=== PATIENT | male | born 1955 | race Caucasian/White ===

== ENCOUNTER 2018-06-01 12:17 | Inpatient (IN) | payer OTHER, BC ==
[2018-06-01 12:59] LABS: ADD MAN DIFF? NO
[2018-06-01] MEDS: SOD CHLORIDE 0.9% 500 ML IV (12:59)
[2018-06-01] MEDS: MAGNESIUM SULFATE 1 GM/D5W 100 ML IVPB (12:59)
[2018-06-01 13:09] LABS: ABNORMAL IP MESSAGE 1; BASOPHILS % 0.2 % (0.0-2.0); EOSINOPHILS % 0.6 % (0.0-7.0); HEMATOCRIT 19.5 % (42.0-52.0); LYMPHOCYTES # 1.2 10^3/ul (0.8-2.9); LYMPHOCYTES % 24.7 % (15.0-51.0); MEAN CORPUSCULAR HEMOGLOBIN 37.6 pg (29.0-33.0); MEAN CORPUSCULAR HGB CONC 34.9 g/dl (32.0-37.0); MEAN CORPUSCULAR VOLUME 107.7 fl (82.0-101.0); MEAN PLATELET VOLUME 11.1 fl (7.4-10.4); MONOCYTE # 0.5 10^3/ul (0.3-0.9); NEUTROPHILS % 63.9 % (39.0-77.0); PLATELET COUNT 168 10^3/UL (140-415); POSITIVE DIFF @See below; RED BLOOD COUNT 1.81 10^6/ul (4.70-6.10); RED CELL DISTRIBUTION WIDTH 18.3 % (11.5-14.5)
[2018-06-01 13:09] LABS: WHITE BLOOD COUNT 4.7 10^3/ul (4.8-10.8)
[2018-06-01 13:17] LABS: HEMOGLOBIN 6.8 g/dl (14.0-18.0); PATH REVIEW? YES
[2018-06-01 13:26] LABS: ALANINE AMINOTRANSFERASE 32 IU/L (13-69); ALBUMIN 4.2 g/dl (3.3-4.9); ALBUMIN/GLOBULIN RATIO 1.61; ALKALINE PHOSPHATASE 71 IU/L (42-121); ANION GAP 23 (8-16); ASPARTATE AMINO TRANSFERASE 65 IU/L (15-46); BILIRUBIN,INDIRECT 1.4 mg/dl (0-1.1); BILIRUBIN,TOTAL 1.4 mg/dl (0.2-1.3); BLOOD UREA NITROGEN 95 mg/dl (7-20); CALCIUM 6.5 mg/dl (8.4-10.2); CARBON DIOXIDE 36 mmol/L (21-31); CHLORIDE 82 mmol/L (97-110); CREATININE 5.29 mg/dl (0.61-1.24); LIPASE 120 U/L (23-300); SODIUM 138 mmol/L (135-144); TOTAL PROTEIN 6.8 g/dl (6.1-8.1)
[2018-06-01 13:29] LABS: GLUCOSE 413 mg/dl (70-220); INR 1.09; PROTIME 14.3 Sec (11.9-14.9); PT RATIO 1.1
[2018-06-01 13:30] LABS: PARTIAL THROMBOPLASTIN TIME 26.4 Sec (25.0-35.0)
[2018-06-01 13:55] LABS: IMMEDIATE SPIN CROSSMATCH 1 2
[2018-06-01] MEDS: POTASSIUM CHLORIDE 100 ML IVPB ×2 (14:08→15:58)
[2018-06-01] MEDS ORDERED: ONDANSETRON 4 MG TAB PO (16:00)
[2018-06-01] MEDS ORDERED: NACL 0.9% 3 ML SYG IV (16:00)
[2018-06-01] MEDS ORDERED: ACETAMINOPHEN 325 MG TAB PO (16:00)
[2018-06-01] MEDS ORDERED: GLUCOSE GEL 15 GRAM TUBE BUCCAL (16:30)
[2018-06-01] MEDS ORDERED: GLUCOSE GEL 15 GRAM TUBE PO ×2 (16:30)
[2018-06-01] MEDS ORDERED: DEXTROSE 50% 50 ML SYRINGE IV ×2 (16:30)
[2018-06-01] MEDS ORDERED: GLUCAGON 1 MG INJ IM (16:30)
[2018-06-01] MEDS: SOD CHLORIDE 0.9% 1,000 ML IV (16:49)
[2018-06-01] MEDS: HYDROCODONE/APAP (5/325) TAB PO (16:49)
[2018-06-01 16:54] LABS: ADD UMIC YES; UR ASCORBIC ACID NEGATIVE (NEGATIVE); UR BILIRUBIN (Dip) NEGATIVE (NEGATIVE); UR BLOOD (Dip) 1+ mg/dL (NEGATIVE); UR CLARITY CLEAR (CLEAR); UR COLOR STRAW (YELLOW); UR GLUCOSE (Dip) 3+ mg/dL (NEGATIVE); UR KETONES (Dip) NEGATIVE (NEGATIVE); UR LEUKOCYTE ESTERASE (Dip) NEGATIVE Leu/ul (NEGATIVE); UR NITRITE (Dip) NEGATIVE (NEGATIVE); UR RBC 0 /HPF (0-5); UR SPECIFIC GRAVITY (Dip) 1.005 (1.003-1.030); UR TOTAL PROTEIN (Dip) 1+ mg/dl (NEGATIVE); UR UROBILINOGEN (Dip) NEGATIVE (NEGATIVE); UR WBC 1 /HPF (0-5)
[2018-06-01] MEDS ORDERED: INSULIN ASPART [NOVOLOG] 3 ML PEN SC ×3 (17:00→18:00)
[2018-06-01] MEDS: INSULIN ASPART [NOVOLOG] 3 ML PEN SC ×3 (18:38→21:00)
[2018-06-01] MEDS: ATORVASTATIN 80 MG TAB PO (21:24)
[2018-06-01] MEDS: NA BICARBONATE 650 MG TAB PO (21:24)
[2018-06-01] MEDS: INSULIN GLARGINE [LANTus] (100 UNITS/ML) SYG SC (21:24)
[2018-06-01] MEDS: TAMSULOSIN (SR) 0.4 MG CAP PO (21:24)
[2018-06-01] MEDS: FAMOTIDINE 20 MG TAB PO (21:24)
[2018-06-02] MEDS: ACCU-CHEK XX (02:00)
[2018-06-02 06:02] LABS: ADD MAN DIFF? NO
[2018-06-02 06:12] LABS: BASOPHILS % 0.2 % (0.0-2.0); EOSINOPHILS # 0.1 10^3/ul (0.0-0.5); HEMATOCRIT 26.8 % (42.0-52.0); HEMOGLOBIN 9.2 g/dl (14.0-18.0); LYMPHOCYTES # 1.5 10^3/ul (0.8-2.9); LYMPHOCYTES % 30.1 % (15.0-51.0); MEAN CORPUSCULAR HEMOGLOBIN 34.3 pg (29.0-33.0); MEAN CORPUSCULAR HGB CONC 34.3 g/dl (32.0-37.0); MEAN PLATELET VOLUME 10.7 fl (7.4-10.4); MONOCYTE # 0.4 10^3/ul (0.3-0.9); MONOCYTES % 7.2 % (0.0-11.0); NEUTROPHIL # 2.9 10^3/ul (1.6-7.5); NEUTROPHILS % 60.3 % (39.0-77.0); PLATELET COUNT 173 10^3/UL (140-415); RED BLOOD COUNT 2.68 10^6/ul (4.70-6.10)
[2018-06-02 06:12] LABS: WHITE BLOOD COUNT 4.9 10^3/ul (4.8-10.8)
[2018-06-02 06:37] LABS: MAGNESIUM 1.5 mg/dl (1.7-2.5)
[2018-06-02 06:37] LABS: PHOSPHORUS 5.3 mg/dl (2.5-4.9)
[2018-06-02 07:16] LABS: ANION GAP 14 (8-16); BLOOD UREA NITROGEN 91 mg/dl (7-20); CARBON DIOXIDE 39 mmol/L (21-31); CHLORIDE 92 mmol/L (97-110); CREATININE 4.34 mg/dl (0.61-1.24); GLUCOSE 111 mg/dl (70-220); SODIUM 142 mmol/L (135-144)
[2018-06-02 07:23] LABS: POTASSIUM 2.8 mmol/L (3.5-5.1)
[2018-06-02] MEDS: INSULIN ASPART [NOVOLOG] 3 ML PEN SC ×7 (07:53→20:06)
[2018-06-02] MEDS: POTASSIUM CHLORIDE (SR) 10 MEQ TAB PO (07:53)
[2018-06-02] MEDS: CALCIUM/VITAMIN D (500/200) TAB PO (08:34)
[2018-06-02] MEDS: NA BICARBONATE 650 MG TAB PO (08:34)
[2018-06-02] MEDS: LORATADINE 10 MG TAB PO (08:34)
[2018-06-02] MEDS: CHOLECALCIFEROL 2,000 UNIT CAP PO (08:34)
[2018-06-02] MEDS: MULTIVIT/CA CARB/B CMPLX/FA TAB PO (08:34)
[2018-06-02] MEDS: FERROUS SULFATE (EC) 325 MG TAB PO (08:34)
[2018-06-02] MEDS: POTASSIUM CHLORIDE (SR) 8 MEQ CAP PO (08:34)
[2018-06-02] MEDS: MAGNESIUM OXIDE 400 MG TAB PO ×2 (15:29→20:07)
[2018-06-02] MEDS: SOD CHLORIDE 0.9% 1,000 ML IV (15:29)
[2018-06-02] MEDS: POTASSIUM CHLORIDE (SR) 20 MEQ TAB PO (16:56)
[2018-06-02] MEDS: EPOETIN 4000 UNITS/1 ML INJ (ESRD) SC (16:57)
[2018-06-02] MEDS: INSULIN GLARGINE [LANTus] (100 UNITS/ML) SYG SC (20:07)
[2018-06-02] MEDS: TAMSULOSIN (SR) 0.4 MG CAP PO (20:07)
[2018-06-02] MEDS: ATORVASTATIN 80 MG TAB PO (20:07)
[2018-06-02] MEDS: FAMOTIDINE 20 MG TAB PO (20:07)
[2018-06-03] MEDS: ACCU-CHEK XX (02:05)
[2018-06-03] MEDS: SOD CHLORIDE 0.9% 1,000 ML IV (05:20)
[2018-06-03 06:15] LABS: ADD MAN DIFF? NO
[2018-06-03 06:18] LABS: WHITE BLOOD COUNT 4.7 10^3/ul (4.8-10.8)
[2018-06-03 06:18] LABS: BASOPHILS % 0.4 % (0.0-2.0); EOSINOPHILS # 0.1 10^3/ul (0.0-0.5); EOSINOPHILS % 2.1 % (0.0-7.0); HEMATOCRIT 25.8 % (42.0-52.0); HEMOGLOBIN 8.9 g/dl (14.0-18.0); LYMPHOCYTES # 1.6 10^3/ul (0.8-2.9); LYMPHOCYTES % 33.4 % (15.0-51.0); MEAN CORPUSCULAR HEMOGLOBIN 35.2 pg (29.0-33.0); MEAN CORPUSCULAR HGB CONC 34.5 g/dl (32.0-37.0); MEAN PLATELET VOLUME 10.3 fl (7.4-10.4); MONOCYTE # 0.4 10^3/ul (0.3-0.9); MONOCYTES % 8.4 % (0.0-11.0); NEUTROPHIL # 2.6 10^3/ul (1.6-7.5); NEUTROPHILS % 55.3 % (39.0-77.0); PLATELET COUNT 174 10^3/UL (140-415); RED BLOOD COUNT 2.53 10^6/ul (4.70-6.10); RED CELL DISTRIBUTION WIDTH 17.4 % (11.5-14.5)
[2018-06-03 06:33] LABS: ANION GAP 14 (8-16); BLOOD UREA NITROGEN 75 mg/dl (7-20); CALCIUM 7.5 mg/dl (8.4-10.2); CARBON DIOXIDE 34 mmol/L (21-31); CHLORIDE 96 mmol/L (97-110); CREATININE 3.56 mg/dl (0.61-1.24); GLUCOSE 149 mg/dl (70-220); POTASSIUM 3.1 mmol/L (3.5-5.1); SODIUM 141 mmol/L (135-144)
[2018-06-03] MEDS: CALCIUM/VITAMIN D (500/200) TAB PO (08:04)
[2018-06-03] MEDS: POTASSIUM CHLORIDE (SR) 8 MEQ CAP PO (08:04)
[2018-06-03] MEDS: FERROUS SULFATE (EC) 325 MG TAB PO (08:04)
[2018-06-03] MEDS: DOCUSATE SODIUM 100 MG CAP PO (08:04)
[2018-06-03] MEDS: CHOLECALCIFEROL 2,000 UNIT CAP PO (08:04)
[2018-06-03] MEDS: MULTIVIT/CA CARB/B CMPLX/FA TAB PO (08:04)
[2018-06-03] MEDS: LORATADINE 10 MG TAB PO (08:05)
[2018-06-03] MEDS: INSULIN ASPART [NOVOLOG] 3 ML PEN SC ×4 (08:06→12:26)
[2018-06-03] MEDS: POTASSIUM CHLORIDE (SR) 10 MEQ TAB PO (09:01)
[2018-06-03] MEDS: POTASSIUM CHLORIDE (SR) 20 MEQ TAB PO (09:01)
[2018-06-03 12:08] LABS: POTASSIUM 3.7 mmol/L (3.5-5.1)
== END 2018-06-03 13:30 | disposition home or self-care (01) | DRG 374 ==
LOC: E/R 12:17 → PP2 13:23
PROVIDERS: Pediatrics Neonatal-Perinatal Medicine
PROC: 30233N1 Transfusion of Nonautologous Red Blood Cells into Peripheral Vein, Percutaneous Approach (ICD-10-PCS; principal; 2018-06-01)
DX: C18.9 Malignant neoplasm of colon, unspecified (principal); N18.6 End stage renal disease; C78.7 Secondary malignant neoplasm of liver and intrahepatic bile duct; I12.0 Hypertensive chronic kidney disease with stage 5 chronic kidney disease or end stage renal disease; N17.9 Acute kidney failure, unspecified; E87.3 Alkalosis; E11.22 Type 2 diabetes mellitus with diabetic chronic kidney disease; E11.65 Type 2 diabetes mellitus with hyperglycemia; E83.51 Hypocalcemia; E86.0 Dehydration; D63.8 Anemia in other chronic diseases classified elsewhere; E87.6 Hypokalemia; E78.5 Hyperlipidemia, unspecified; N40.0 Benign prostatic hyperplasia without lower urinary tract symptoms; D63.1 Anemia in chronic kidney disease; D63.0 Anemia in neoplastic disease; Z79.4 Long term (current) use of insulin; Z90.49 Acquired absence of other specified parts of digestive tract
CPT/HCPCS: 36415; 36430; 71045; 76775; 80048; 80053; 81001; 82962; 83036; 83690; 83735; 84100; 84132; 84484; 85025; 85610; 85730; 86850; 86900; 86901; 86920; 87086; 93005; 96374; 99291-25

== ENCOUNTER → 2018-06-11 17:26 | Emergency (ER) | payer SELFPAY, OTHER | END | disposition left against medical advice (07) | DX: Z53.21 Procedure and treatment not carried out due to patient leaving prior to being seen by health care provider (principal) ==

== ENCOUNTER 2019-03-19 07:48 | Day surgery (SDC) | payer OTHER ==
[2019-03-19] MEDS: LIDOCAINE 1% (MDV) 20 ML INJ (12:11)
[2019-03-19] MEDS: FENTAnyl 50 MCG/ML VIAL (12:13)
[2019-03-19] MEDS: GELATIN 12MM X 7 MM SPONGE (12:25)
== END 2019-03-19 13:55 | disposition home or self-care (01) ==
LOC: RAD 07:48 → SDS 07:48 → RAD 13:55
DX: C78.7 Secondary malignant neoplasm of liver and intrahepatic bile duct (principal)
CPT/HCPCS: 47000; 77012; 82962; 88307; 88313

== ENCOUNTER 2019-04-14 11:33 | Inpatient (IN) | payer OTHER ==
[2019-04-14 12:48] LABS: ABNORMAL IP MESSAGE 1; HEMATOCRIT 21.6 % (42.0-52.0); HEMOGLOBIN 7.2 g/dl (14.0-18.0); MEAN CORPUSCULAR HEMOGLOBIN 34.8 pg (29.0-33.0); MEAN CORPUSCULAR HGB CONC 33.3 g/dl (32.0-37.0); MEAN CORPUSCULAR VOLUME 104.3 fl (82.0-101.0); PLATELET COUNT 139 10^3/UL (140-415); POSITIVE DIFF @See below; RED BLOOD COUNT 2.07 10^6/ul (4.70-6.10); RED CELL DISTRIBUTION WIDTH 15.3 % (11.5-14.5)
[2019-04-14 12:48] LABS: WHITE BLOOD COUNT 1.9 10^3/ul (4.8-10.8)
[2019-04-14 12:52] LABS: ADD MAN DIFF? YES
[2019-04-14 13:05] LABS: ANION GAP 9 (5-13); BLOOD UREA NITROGEN 53 mg/dl (7-20); CALCIUM 8.5 mg/dl (8.4-10.2); CARBON DIOXIDE 27 mmol/L (21-31); CHLORIDE 103 mmol/L (97-110); CREATININE 3.33 mg/dl (0.61-1.24); Estimated GFR 19 mL/min (>60); GLUCOSE 240 mg/dl (70-220); POTASSIUM 5.9 mmol/L (3.5-5.1); SODIUM 139 mmol/L (135-144)
[2019-04-14] MEDS: SOD CHLORIDE 0.9% 0 ML IV (13:38)
[2019-04-14] MEDS: INSULIN REGULAR, HUMAN 100 UNIT/1 ML 3ML VIAL IVP (13:53)
[2019-04-14] MEDS: SODIUM POLYSTYRENE 15 GM KIT (POWDER + SORBITOL) PO (13:53)
[2019-04-14] MEDS ORDERED: ACETAMINOPHEN 325 MG TAB PO ×2 (14:00→17:30)
[2019-04-14] MEDS ORDERED: ONDANSETRON 4 MG INJ IV ×2 (14:00→17:30)
[2019-04-14 14:09] LABS: IMMEDIATE SPIN CROSSMATCH 1 1
[2019-04-14 14:13] LABS: INR 0.97
[2019-04-14 14:14] LABS: PARTIAL THROMBOPLASTIN TIME 29.2 Sec (23.0-35.0)
[2019-04-14 14:17] LABS: ALANINE AMINOTRANSFERASE 32 IU/L (13-69); ALBUMIN 3.7 g/dl (3.3-4.9); ALKALINE PHOSPHATASE 72 IU/L (42-121); ASPARTATE AMINO TRANSFERASE 28 IU/L (15-46); BILIRUBIN,INDIRECT 0.7 mg/dl (0-1.1); BILIRUBIN,TOTAL 0.7 mg/dl (0.2-1.3); TOTAL PROTEIN 5.9 g/dl (6.1-8.1)
[2019-04-14] MEDS: DEXTROSE 50% 50 ML SYRINGE IV (14:29)
[2019-04-14 14:57] LABS: ANISOCYTOSIS 1+ (0-0); BAND NEUTROPHILS % (M) 4 % (0-4); BASOPHILS % (M) 1 % (0-2); EOSINOPHILS % (M) 4 % (0-7); LYMPHOCYTES #M 1.1 10^3/ul (0.8-2.9); LYMPHOCYTES % (M) 59 % (15-51); MICROCYTOSIS 1+ (0-0); MONOCYTE #M 0.1 10^3/ul (0.3-0.9); MONOCYTES % (M) 9 % (0-11); OVALOCYTES 1+ (0-0); PLATELET ESTIMATE DECREASED; POIKILOCYTOSIS 1+ (0-0); POLYCHROMASIA 1+ (0-0); SEG NEUT #M 0.4 10^3/ul (1.6-7.5); SEGMENTED NEUTROPHILS (M) % 23 % (39-77); SMUDGE%M 5 % (0-0)
[2019-04-14 15:14] LABS: TROPONIN-I 0.023 ng/ml (0.000-0.120)
[2019-04-14 16:31] LABS: ADD UMIC YES; UR ASCORBIC ACID NEGATIVE (NEGATIVE); UR BILIRUBIN (Dip) NEGATIVE (NEGATIVE); UR BLOOD (Dip) NEGATIVE (NEGATIVE); UR CLARITY CLEAR (CLEAR); UR COLOR YELLOW (YELLOW); UR GLUCOSE (Dip) 1+ mg/dL (NEGATIVE); UR KETONES (Dip) NEGATIVE (NEGATIVE); UR LEUKOCYTE ESTERASE (Dip) NEGATIVE Leu/ul (NEGATIVE); UR NITRITE (Dip) NEGATIVE (NEGATIVE); UR RBC 1 /HPF (0-5); UR SPECIFIC GRAVITY (Dip) 1.009 (1.003-1.030); UR TOTAL PROTEIN (Dip) 2+ mg/dl (NEGATIVE); UR UROBILINOGEN (Dip) NEGATIVE (NEGATIVE); UR WBC 0 /HPF (0-5)
[2019-04-14] MEDS ORDERED: HYDROCODONE/APAP (5/325) TAB PO (17:30)
[2019-04-14] MEDS ORDERED: NACL 0.9% 3 ML SYG IV (17:30)
[2019-04-14] MEDS ORDERED: DOCUSATE SODIUM 100 MG CAP PO (17:30)
[2019-04-14] MEDS ORDERED: MAGNESIUM HYDROXIDE 30ML CUP PO (17:30)
[2019-04-14] MEDS ORDERED: GLUCOSE GEL 15 GRAM TUBE BUCCAL (18:00)
[2019-04-14] MEDS ORDERED: DEXTROSE 50% 50 ML SYRINGE IV ×2 (18:00)
[2019-04-14] MEDS ORDERED: GLUCAGON 1 MG INJ IM (18:00)
[2019-04-14] MEDS ORDERED: GLUCOSE GEL 15 GRAM TUBE PO ×2 (18:00)
[2019-04-14 18:51] LABS: POTASSIUM 4.7 mmol/L (3.5-5.1)
[2019-04-14 18:53] LABS: CREATINE KINASE 172 IU/L (23-200)
[2019-04-14] MEDS: INSULIN ASPART [NOVOLOG] 3 ML PEN SC ×2 (18:58→20:28)
[2019-04-14 19:07] LABS: CK-MB 1.77 ng/ml (0.0-2.4); TROPONIN-I 0.022 ng/ml (0.000-0.120)
[2019-04-14] MEDS ORDERED: INSULIN GLARGINE [LANTus] (100 UNITS/ML) SYG SC (20:00)
[2019-04-14] MEDS: TAMSULOSIN (SR) 0.4 MG CAP PO (20:26)
[2019-04-14] MEDS: GABAPENTIN 400 MG CAP PO (20:27)
[2019-04-14] MEDS: INSULIN GLARGINE [LANTus] (100 UNITS/ML) SYG SC (20:28)
[2019-04-15 00:34] LABS: CREATINE KINASE 158 IU/L (23-200)
[2019-04-15 00:47] LABS: CK-MB 1.52 ng/ml (0.0-2.4); TROPONIN-I 0.027 ng/ml (0.000-0.120)
[2019-04-15] MEDS: ACCU-CHEK XX (02:21)
[2019-04-15] MEDS: PANTOPRAZOLE (EC) 40 MG TAB PO (05:57)
[2019-04-15 07:29] LABS: ADD MAN DIFF? NO
[2019-04-15 07:34] LABS: ABNORMAL IP MESSAGE 1; EOSINOPHILS % 1.5 % (0.0-7.0); HEMATOCRIT 25.3 % (42.0-52.0); HEMOGLOBIN 8.4 g/dl (14.0-18.0); LYMPHOCYTES # 1.1 10^3/ul (0.8-2.9); LYMPHOCYTES % 54.1 % (15.0-51.0); MEAN CORPUSCULAR HEMOGLOBIN 32.7 pg (29.0-33.0); MEAN CORPUSCULAR HGB CONC 33.2 g/dl (32.0-37.0); MEAN CORPUSCULAR VOLUME 98.4 fl (82.0-101.0); MEAN PLATELET VOLUME 11.5 fl (7.4-10.4); MONOCYTE # 0.3 10^3/ul (0.3-0.9); MONOCYTES % 15.3 % (0.0-11.0); NEUTROPHIL # 0.6 10^3/ul (1.6-7.5); NEUTROPHILS % 28.6 % (39.0-77.0); PLATELET COUNT 151 10^3/UL (140-415); RED BLOOD COUNT 2.57 10^6/ul (4.70-6.10); RED CELL DISTRIBUTION WIDTH 19.3 % (11.5-14.5)
[2019-04-15] MEDS: INSULIN ASPART [NOVOLOG] 3 ML PEN SC (08:00)
[2019-04-15 08:05] LABS: ANION GAP 9 (5-13); BLOOD UREA NITROGEN 50 mg/dl (7-20); CALCIUM 8.1 mg/dl (8.4-10.2); CARBON DIOXIDE 27 mmol/L (21-31); CHLORIDE 104 mmol/L (97-110); CREATININE 2.81 mg/dl (0.61-1.24); Estimated GFR 23 mL/min (>60); GLUCOSE 102 mg/dl (70-220); MAGNESIUM 1.9 mg/dl (1.7-2.5); PHOSPHORUS 4.9 mg/dl (2.5-4.9); POTASSIUM 4.1 mmol/L (3.5-5.1); SODIUM 140 mmol/L (135-144)
[2019-04-15] MEDS: GABAPENTIN 400 MG CAP PO (08:25)
[2019-04-15] MEDS: FERROUS SULFATE (EC) 325 MG TAB PO (08:25)
[2019-04-15] MEDS: LORATADINE 10 MG TAB PO (08:25)
[2019-04-15] MEDS: FOLIC ACID 1 MG TAB PO (08:25)
[2019-04-15] MEDS: FUROSEMIDE 40 MG TAB PO (08:25)
== END 2019-04-15 11:29 | disposition home or self-care (01) | DRG 812 ==
LOC: E/R 11:33 → 6WM 13:50
PROC: 30253N1 (ICD-10-PCS; principal; 2019-04-14)
DX: D64.81 Anemia due to antineoplastic chemotherapy (principal); C18.9 Malignant neoplasm of colon, unspecified; C79.9 Secondary malignant neoplasm of unspecified site; N18.4 Chronic kidney disease, stage 4 (severe); D72.819 Decreased white blood cell count, unspecified; E87.5 Hyperkalemia; E11.9 Type 2 diabetes mellitus without complications; I12.9 Hypertensive chronic kidney disease with stage 1 through stage 4 chronic kidney disease, or unspecified chronic kidney disease; D69.6 Thrombocytopenia, unspecified
CPT/HCPCS: 36430; 71045; 80048; 80076; 81001; 82550; 82553; 82962; 83735; 84100; 84132; 84484; 85025; 85610; 85730; 86850; 86900; 86901; 86920; 93005; 99285-25

== ENCOUNTER 2019-06-29 16:21 | Emergency (ER) | payer OTHER ==
[2019-06-29 17:07] LABS: ADD MAN DIFF? NO
[2019-06-29 17:09] LABS: EOSINOPHILS % 0.2 % (0.0-7.0); HEMATOCRIT 25.2 % (42.0-52.0); HEMOGLOBIN 8.4 g/dl (14.0-18.0); LYMPHOCYTES # 0.8 10^3/ul (0.8-2.9); LYMPHOCYTES % 15.6 % (15.0-51.0); MEAN CORPUSCULAR HGB CONC 33.3 g/dl (32.0-37.0); MEAN PLATELET VOLUME 10.4 fl (7.4-10.4); MONOCYTE # 0.9 10^3/ul (0.3-0.9); MONOCYTES % 17.6 % (0.0-11.0); NEUTROPHIL # 3.3 10^3/ul (1.6-7.5); PLATELET COUNT 151 10^3/UL (140-415); RED BLOOD COUNT 2.47 10^6/ul (4.70-6.10); RED CELL DISTRIBUTION WIDTH 15.4 % (11.5-14.5)
[2019-06-29] MEDS: SODIUM CHLORIDE 0.9% 1L BAG IV* (17:12)
[2019-06-29] MEDS: morphine 10 MG INJ IV (17:12)
[2019-06-29] MEDS: PIPER-TAZO 3.375 GM IV (PMX) 100 ML IVPB (17:12)
[2019-06-29 17:30] LABS: INR 1.04; PROTIME 13.7 Sec (11.9-14.9); PT RATIO 1.1
[2019-06-29 17:31] LABS: ALANINE AMINOTRANSFERASE 26 IU/L (13-69); ALBUMIN 4.4 g/dl (3.3-4.9); ALBUMIN/GLOBULIN RATIO 1.51; ALKALINE PHOSPHATASE 109 IU/L (42-121); ANION GAP 12 (5-13); ASPARTATE AMINO TRANSFERASE 31 IU/L (15-46); BILIRUBIN,INDIRECT 0.9 mg/dl (0-1.1); BILIRUBIN,TOTAL 0.9 mg/dl (0.2-1.3); BLOOD UREA NITROGEN 51 mg/dl (7-20); CALCIUM 9.2 mg/dl (8.4-10.2); CARBON DIOXIDE 28 mmol/L (21-31); CHLORIDE 95 mmol/L (97-110); CREATININE 3.65 mg/dl (0.61-1.24); Estimated GFR 17 mL/min (>60); GLUCOSE 237 mg/dl (70-220); PARTIAL THROMBOPLASTIN TIME 31.1 Sec (23.0-35.0); POTASSIUM 4.6 mmol/L (3.5-5.1); SODIUM 135 mmol/L (135-144); TOTAL PROTEIN 7.3 g/dl (6.1-8.1)
[2019-06-29 17:43] LABS: TROPONIN-I 0.037 ng/ml (0.000-0.120)
[2019-06-29 18:29] LABS: ADD UMIC YES; UR ASCORBIC ACID NEGATIVE (NEGATIVE); UR BACTERIA FEW /HPF (NONE SEEN); UR BILIRUBIN (Dip) NEGATIVE (NEGATIVE); UR BLOOD (Dip) NEGATIVE (NEGATIVE); UR CLARITY SLIGHTLY CLOUDY (CLEAR); UR COLOR YELLOW (YELLOW); UR GLUCOSE (Dip) 1+ mg/dL (NEGATIVE); UR KETONES (Dip) NEGATIVE (NEGATIVE); UR LEUKOCYTE ESTERASE (Dip) NEGATIVE Leu/ul (NEGATIVE); UR MUCUS FEW /HPF (NONE SEEN); UR NITRITE (Dip) NEGATIVE (NEGATIVE); UR RBC 2 /HPF (0-5); UR SPECIFIC GRAVITY (Dip) 1.011 (1.003-1.030); UR TOTAL PROTEIN (Dip) 3+ mg/dl (NEGATIVE); UR UROBILINOGEN (Dip) NEGATIVE (NEGATIVE); UR WBC 1 /HPF (0-5)
[2019-06-29] MEDS ORDERED: ACETAMINOPHEN 325 MG TAB PO (20:00)
[2019-06-29] MEDS ORDERED: ONDANSETRON 4 MG INJ IV (20:00)
== END 2019-06-29 22:45 | disposition left against medical advice (07) ==
LOC: E/R 22:45
DX: D64.9 Anemia, unspecified (principal); I12.9 Hypertensive chronic kidney disease with stage 1 through stage 4 chronic kidney disease, or unspecified chronic kidney disease; N18.9 Chronic kidney disease, unspecified; E11.65 Type 2 diabetes mellitus with hyperglycemia; C78.7 Secondary malignant neoplasm of liver and intrahepatic bile duct; Z85.038 Personal history of other malignant neoplasm of large intestine; Z79.4 Long term (current) use of insulin
CPT/HCPCS: 36415; 71045; 74176; 80053; 81001; 83605; 84484; 85025; 85610; 85730; 87040-91; 87086; 93005; 96365; 96375; 99285-25